=== PATIENT | male | born 1970 | race Caucasian/White ===

== ENCOUNTER 2019-03-25 02:55 | Inpatient (IN) | payer OTHER ==
[~2019-03-25] VITALS: Ht 177.8 cm; Wt 113.1 kg
[~2019-03-25 02:55] MED LIST: ABILIFY5 M1 PO; ATORVASTATIN CA40 M1 PO; COR6 PO; ECO81 PO; HYDROCHLOROTH12.5 M2 PO; LISINOPRIL1 PO1; NIT0.4 SL; NOR10 PO; PLA75 PO; PRINIVIL20 MG PO; SERTRALINE HYD100 MG PO; ZES20 PO
[2019-03-25 02:58] VITALS: Ht 177.8 cm; Wt 113.1 kg
[2019-03-25 03:44] LABS: BASOPHIL % 0.3 % (0-2); PLATELET COUNT 252 x10^3mcL (130-400); RED CELL DISTRIBUTION WIDTH 12.8 % (11.5-14.5)
[2019-03-25 04:11] LABS: CALCIUM 9.2 mg/dL (8.5-10.1); CARBON DIOXIDE 28.3 mmol/L (21-32); CREATININE SERUM 2.1 mg/dL (0.7-1.3); POTASSIUM SERUM 3.4 mmol/L (3.5-5.1)
[2019-03-25 04:20] LABS: ALBUMIN 4.4 g/dL (3.4-5.0); BILIRUBIN TOTAL 0.71 mg/dL (0.20-1.00); TOTAL PROTEIN, SERUM 6.8 g/dL (6.4-8.2)
[2019-03-25] MEDS ORDERED: ZESTRIL20 MG PO (05:57)
[2019-03-25] MEDS ORDERED: TRAZODONE50 M1 PO (05:58)
[2019-03-25] MEDS ORDERED: ABILIFY10 M2 PO (05:58)
[2019-03-25] MEDS ORDERED: LAMICTAL25 M2 PO (05:59)
[2019-03-25 07:36] VITALS: BP 108/68
[2019-03-25 07:59] VITALS: BP 99/63
[2019-03-25 11:32] VITALS: BP 139/95
[2019-03-25 15:59] VITALS: BP 132/78
[2019-03-25 20:08] VITALS: BP 128/77
[2019-03-26 03:45] VITALS: BP 125/82
[2019-03-26 05:00] VITALS: BP 131/80
[2019-03-26 06:39] LABS: BASOPHIL % 0.5 % (0-2); PLATELET COUNT 232 x10^3mcL (130-400); RED CELL DISTRIBUTION WIDTH 12.9 % (11.5-14.5)
[2019-03-26 07:18] LABS: ALBUMIN 3.7 g/dL (3.4-5.0); BILIRUBIN TOTAL 0.4 mg/dL (0.20-1.00); CALCIUM 9.1 mg/dL (8.5-10.1); CARBON DIOXIDE 29.7 mmol/L (21-32); CREATININE SERUM 1.4 mg/dL (0.7-1.3); POTASSIUM SERUM 3.4 mmol/L (3.5-5.1); T4(THYROXINE) 8.6 ug/dL (4.7-13.3); TOTAL PROTEIN, SERUM 6.5 g/dL (6.4-8.2)
[2019-03-26 07:53] VITALS: BP 140/94
[2019-03-26 10:03] LABS: ERYTHROCYTE SED RATE 10 mm/hr (0-15)
[2019-03-26 11:52] VITALS: BP 154/105
[2019-03-26 13:13] VITALS: BP 154/105
[2019-03-27 04:07] LABS: RAPID PLASMA REAGIN Non Reactive (Non Reactive)
[2019-03-27 09:05] LABS: RHEUMATOID ARTHRITIS FACTOR <10.0 IU/mL (0.0-13.9)
== END 2019-03-26 14:19 | disposition home or self-care (01) | DRG 70 ==
LOC: ED 02:55 → DU 06:02
PROVIDERS: Emergency Medicine; ADMIT Internal Medicine
DX: G93.41 Metabolic encephalopathy (principal); N17.0 Acute kidney failure with tubular necrosis; T43.215A Adverse effect of selective serotonin and norepinephrine reuptake inhibitors, initial encounter; E86.0 Dehydration; E87.6 Hypokalemia; I13.10 Hypertensive heart and chronic kidney disease without heart failure, with stage 1 through stage 4 chronic kidney disease, or unspecified chronic kidney disease; I25.10 Atherosclerotic heart disease of native coronary artery without angina pectoris; N18.9 Chronic kidney disease, unspecified; F20.9 Schizophrenia, unspecified; F32.9 Major depressive disorder, single episode, unspecified; Z95.5 Presence of coronary angioplasty implant and graft; Y92.013 Bedroom of single-family (private) house as the place of occurrence of the external cause
CPT/HCPCS: 86431; 97116-GP; G0378; G0480; J2405; J7030; Q0092